=== PATIENT | female | born 1955 | race Caucasian/White ===

== ENCOUNTER 2024-07-07 04:19 | Inpatient (IN) | payer OTHER, MEDICARE ==
[2024-07-04 15:20] LABS: HEMATOCRIT 41.2 % (32.4-45.2); HEMOGLOBIN 13.9 GM/dL (10.7-15.3); MCH 31.6 pg (25.7-33.7); MCHC 33.8 g/dl (32.0-36.0); MEAN CELL VOLUME 93.5 fl (80-96); MEAN PLT VOLUME 7.4 fl (7.5-11.1); PLATELET COUNT 405 10^3/uL (134-434); RBC 4.41 M/mm3 (3.60-5.2); RDW 13.7 % (11.6-15.6)
[2024-07-04 15:25] LABS: INR 0.87 (0.83-1.09); POTASSIUM 3.4 mmol/L (3.5-5.1); PROTHROMBIN TIME (PATIENT) 10.1 SEC (9.7-13.0)
[2024-07-04 15:27] LABS: BLOOD UREA NITROGEN 15.4 mg/dL (7-18); CALCIUM 9.1 mg/dL (8.5-10.1)
[2024-07-07] MEDS ORDERED: PROPOFOL 20 ML ONE (07:48)
[2024-07-07] MEDS ORDERED: ROCURONIUM BROMIDE 50 MG/5 ML SYRINGE ONE ×2 (07:48→10:42)
[2024-07-07] MEDS ORDERED: MIDAZOLAM HCL 2 MG/2 ML SINGLE DOSE VIAL ONE (07:49)
[2024-07-07] MEDS ORDERED: cefOXitin SODIUM 2 GM VIAL (RESTRICTED TO ID) IVPB ONE (08:49)
[2024-07-07] MEDS: cefOXitin SODIUM 2 GM VIAL (RESTRICTED TO ID) IVPB ONE ×2 (09:13)
[2024-07-07] MEDS ORDERED: BUPIVACAINE HCL/PF 0.25% (2.5MG/ML) 10 ML VIAL ONE (09:30)
[2024-07-07] MEDS: BUPIVACAINE HCL/PF 0.25% (2.5MG/ML) 10 ML VIAL IJ ONE ×2 (09:36)
[2024-07-07] MEDS ORDERED: methylPREDNISolone NA SUCC 125 MG/2 ML VIAL ONE (10:41)
[2024-07-07] MEDS ORDERED: SUGAMMADEX SODIUM 200 MG/2 ML VIAL ONE (12:20)
[2024-07-07] MEDS: CEFOXITIN SODIUM 2 GM in DEXTROSE 5%-WATER - 100 ML IVPB ONE (13:37)
[2024-07-07] MEDS: ACETAMINOPHEN 1000 MG/100 ML BAG IVPB ONE (13:37)
[2024-07-07] MEDS: HEPARIN NA (PORCINE) 5,000 UNITS/ML 1ML VIAL SQ ONE (13:38)
[2024-07-07] MEDS ORDERED: clonazePAM 0.5 MG TABLET PO PRN (13:53)
[2024-07-07] MEDS ORDERED: ONDANSETRON 4 MG/2 ML VIAL IVPUSH PRN (13:58)
[2024-07-07] MEDS: LACTATED RINGERS SOLUTION 1,000 ML IV SCH (14:16)
[2024-07-07] MEDS ORDERED: CEFOXITIN SODIUM 2 GM in DEXTROSE 5%-WATER - 100 ML IVPB SCH ×2 (16:00→17:30)
[2024-07-07] MEDS: PREDNISOLONE 5 MG PO SCH (16:05)
[2024-07-07] MEDS: ACETAMINOPHEN 1000 MG/100 ML BAG IVPB SCH (17:21)
[2024-07-07] MEDS: CEFOXITIN SODIUM 2 GM in DEXTROSE 5%-WATER 100 ML IVPB SCH (20:27)
[2024-07-07] MEDS: oxyCODONE HCL 5 MG TABLET PO PRN ×2 (21:25)
[2024-07-08] MEDS: oxyCODONE HCL 5 MG TABLET PO PRN (08:17)
[2024-07-08 09:16] LABS: BASO % 0.7 % (0-2.0); EOS % 0.1 % (0-4.5); HEMATOCRIT 38.4 % (32.4-45.2); HEMOGLOBIN 12.8 GM/dL (10.7-15.3); LYMPH % 11.9 % (8-40); MCH 31.5 pg (25.7-33.7); MCHC 33.4 g/dl (32.0-36.0); MEAN CELL VOLUME 94.3 fl (80-96); MEAN PLT VOLUME 7.2 fl (7.5-11.1); MONO % 9.5 % (3.8-10.2); NEUT % 77.8 % (42.8-82.8); PLATELET COUNT 353 10^3/uL (134-434); RBC 4.07 M/mm3 (3.60-5.2); RDW 13.9 % (11.6-15.6)
[2024-07-08 09:31] LABS: POTASSIUM 4.1 mmol/L (3.5-5.1)
[2024-07-08 09:33] LABS: BLOOD UREA NITROGEN 12.1 mg/dL (7-18)
[2024-07-08 09:36] LABS: CREATININE 0.8 mg/dL (0.55-1.3)
[2024-07-08] MEDS ORDERED: prednisoLONE SODIUM PHOSPHATE 5 MG/5 ML ORAL SOLN BOTTLE PO SCH (10:15)
[2024-07-08] MEDS: ENOXAPARIN NA (PORCINE) 40 MG/0.4 ML DISP.SYRIN SQ SCH (11:13)
[2024-07-08] MEDS: FLUTICASONE/UMECLIDIN/VILANTER(200-62.5-25 TRELEGY ELLIPTA) INAHLER IH SCH (11:13)
[2024-07-08] MEDS: PANTOPRAZOLE 40 MG TABLET PO SCH (11:13)
[2024-07-08] MEDS: ROFLUMILAST 500 MCG TABLET PO SCH (11:14)
[2024-07-08] MEDS: prednisoLONE SODIUM PHOSPHATE 5 MG/5 ML ORAL SOLN BOTTLE PO SCH (11:15)
[2024-07-08] MEDS ORDERED: ACETAMINOPHEN 500 MG TABLET (FP) PO PRN (12:03)
[2024-07-08] MEDS: ALPRAZolam 1 MG TABLET PO PRN (12:33)
[2024-07-08 15:46] VITALS: BMI 30.2
[2024-07-09] MEDS: IBUPROFEN 400 MG TABLET (FP) PO SCH (09:38)
[2024-07-09] MEDS: FAMOTIDINE 20 MG TABLET PO SCH (09:38)
[2024-07-09] MEDS: ACETAMINOPHEN 500 MG TABLET (FP) PO SCH (09:39)
[2024-07-09 11:11] LABS: BASO % 0.5 % (0-2.0); EOS % 0.8 % (0-4.5); HEMATOCRIT 39.5 % (32.4-45.2); HEMOGLOBIN 13.3 GM/dL (10.7-15.3); LYMPH % 10.6 % (8-40); MCH 31.2 pg (25.7-33.7); MCHC 33.6 g/dl (32.0-36.0); MEAN CELL VOLUME 92.7 fl (80-96); MEAN PLT VOLUME 7.4 fl (7.5-11.1); MONO % 7.1 % (3.8-10.2); PLATELET COUNT 371 10^3/uL (134-434); RBC 4.26 M/mm3 (3.60-5.2); RDW 13.8 % (11.6-15.6); WHITE BLOOD COUNT 13.5 K/mm3 (4.0-10.0)
[2024-07-09 11:51] LABS: POTASSIUM 3.9 mmol/L (3.5-5.1)
[2024-07-09 11:58] LABS: CALCIUM 9.3 mg/dL (8.5-10.1); MAGNESIUM 2.1 mg/dL (1.8-2.4)
[2024-07-09 12:01] LABS: CREATININE 0.8 mg/dL (0.55-1.3)
[2024-07-09 12:02] LABS: PHOSPHOROUS 3.2 mg/dL (2.5-4.9)
[2024-07-09] MEDS: MULTIVITAMINS (DAILY MVI) TABLET (FP) PO ONE (15:35)
[2024-07-09] MEDS: SODIUM CHLORIDE 0.9% 1000 ML INFUS.BAG IV ONE (15:37)
[2024-07-09] MEDS: clonazePAM 0.5 MG TABLET PO SCH (21:41)
[2024-07-09 23:27] VITALS: RESP 18
[2024-07-10 09:09] LABS: BASO % 0.7 % (0-2.0); EOS % 1.4 % (0-4.5); HEMOGLOBIN 12.3 GM/dL (10.7-15.3); LYMPH % 4.9 % (8-40); MCH 31.9 pg (25.7-33.7); MCHC 34.1 g/dl (32.0-36.0); MEAN CELL VOLUME 93.6 fl (80-96); MEAN PLT VOLUME 6.6 fl (7.5-11.1); MONO % 5.7 % (3.8-10.2); NEUT % 87.3 % (42.8-82.8); PLATELET COUNT 324 10^3/uL (134-434); RBC 3.85 M/mm3 (3.60-5.2); WHITE BLOOD COUNT 15.2 K/mm3 (4.0-10.0)
[2024-07-10] MEDS: MULTIVITAMINS (DAILY MVI) TABLET (FP) PO SCH (09:22)
[2024-07-10 09:36] LABS: POTASSIUM 3.7 mmol/L (3.5-5.1)
[2024-07-10 09:37] LABS: CALCIUM 8.3 mg/dL (8.5-10.1)
[2024-07-10 09:38] LABS: BLOOD UREA NITROGEN 10.3 mg/dL (7-18)
[2024-07-10 09:41] LABS: CREATININE 0.7 mg/dL (0.55-1.3)
[2024-07-10 10:59] VITALS: BP 129/80; PULSE 62; TEMP 99.1
== END 2024-07-10 13:40 | disposition home or self-care (01) | DRG 330 ==
LOC: J2C 04:19 → J8W 15:39
PROVIDERS: ADMIT Internal Medicine; ATTEND Nurse Practitioner Family
PROC: 0DTF4ZZ Resection of Right Large Intestine, Percutaneous Endoscopic Approach (ICD-10-PCS; principal; 2024-07-07 08:00)
DX: C18.2 Malignant neoplasm of ascending colon (principal); J96.11 Chronic respiratory failure with hypoxia; J44.9 Chronic obstructive pulmonary disease, unspecified; F41.9 Anxiety disorder, unspecified
CPT/HCPCS: 36415; 80048; 83735; 84100; 85025; 85027; 85610; 86140; 86850; 86900; 86901; 86922; 88309-TC; 88341-TC; 88342-TC; 94010; 94760; J0131; J1644